=== PATIENT | male | born 1985 | race Caucasian/White ===

== ENCOUNTER 2019-05-12 09:16 | Emergency (ER) | payer OTHER ==
[~2019-05-12] VITALS: Ht 175.3 cm; Wt 86.2 kg
[~2019-05-12 09:16] MED LIST: BACLOFEN; DOCUSATE SODIU PO; GABAPENTIN400 MG PO; LIO10 PO; NORTRIPTYLINE25 MG PO
[2019-05-12 09:28] VITALS: Ht 175.3 cm; Wt 86.2 kg
[2019-05-12 11:21] VITALS: BP 116/61
== END 2019-05-12 11:21 | disposition home or self-care (01) ==
LOC: ED 09:16
DX: F07.81 Postconcussional syndrome (principal)